=== PATIENT | male | born 1960 | race Caucasian/White ===

== ENCOUNTER 2017-03-29 10:35 | Day surgery (SDC) | payer OTHER ==
[2017-03-29 12:00] LABS: WHITE BLOOD COUNT 2.9 10^3/ul (4.8-10.8)
[2017-03-29 12:00] LABS: ABNORMAL IP MESSAGE 1; HEMATOCRIT 34.8 % (42.0-52.0); HEMOGLOBIN 11.6 g/dl (14.0-18.0); MEAN CORPUSCULAR HEMOGLOBIN 30.3 pg (29.0-33.0); MEAN CORPUSCULAR HGB CONC 33.3 g/dl (32.0-37.0); MEAN CORPUSCULAR VOLUME 90.9 fl (82.0-101.0); MEAN PLATELET VOLUME 11.2 fl (7.4-10.4); PLATELET COUNT 42 10^3/UL (140-415); POSITIVE DIFF @See below; RED BLOOD COUNT 3.83 10^6/ul (4.70-6.10); RED CELL DISTRIBUTION WIDTH 13.7 % (11.5-14.5)
[2017-03-29 12:11] LABS: ANION GAP 16 (8-16); CARBON DIOXIDE 20 mmol/L (21-31); CHLORIDE 112 mmol/L (97-110); GLUCOSE 111 mg/dl (70-220)
[2017-03-29 12:12] LABS: ADD MAN DIFF? YES; HOLD TRANSMISSIONS 1
[2017-03-29] MEDS ORDERED: MIDAZOLAM 1 MG/ML 2 ML INJ (12:12)
[2017-03-29] MEDS ORDERED: FENTAnyl 50 MCG/ML VIAL (12:12)
[2017-03-29] MEDS ORDERED: IODIXANOL LOCM 100 ML BTL (12:12)
[2017-03-29] MEDS ORDERED: LIDOCAINE 1% (MDV) 20 ML INJ (12:12)
[2017-03-29 12:27] LABS: INR 1.27; PROTIME 16.1 Sec (11.9-14.9); PT RATIO 1.3
[2017-03-29 12:30] LABS: BLOOD UREA NITROGEN 49 mg/dl (7-20); CALCIUM 9.2 mg/dl (8.4-10.2); CREATININE 1.53 mg/dl (0.61-1.24); POTASSIUM 4.8 mmol/L (3.5-5.1); SODIUM 143 mmol/L (135-144)
[2017-03-29 12:31] LABS: ANISOCYTOSIS 1+ (0-0); BAND NEUTROPHILS #M 0.1 10^3/ul (0.0-0.6); BAND NEUTROPHILS % (M) 4 % (0-4); EOSINOPHILS % (M) 2 % (0-7); LYMPHOCYTES #M 1.1 10^3/ul (0.8-2.9); LYMPHOCYTES % (M) 38 % (15-51); MONOCYTE #M 0.1 10^3/ul (0.3-0.9); MONOCYTES % (M) 5 % (0-11); OVALOCYTES 1+ (0-0); PLATELET ESTIMATE DECREASED; POIKILOCYTOSIS 1+ (0-0); SEG NEUT #M 1.5 10^3/ul (1.7-7.5); SEGMENTED NEUTROPHILS (M) % 51 % (39-77); SMUDGE%M 2 % (0-0)
[2017-03-29 12:38] LABS: PARTIAL THROMBOPLASTIN TIME 38.6 Sec (25.0-35.0)
== END 2017-03-29 13:56 | disposition home or self-care (01) ==
LOC: SDS 10:35
DX: L97.829 Non-pressure chronic ulcer of other part of left lower leg with unspecified severity (principal); Z53.9 Procedure and treatment not carried out, unspecified reason
CPT/HCPCS: 80048; 82962; 85025; 85610; 85730

== ENCOUNTER 2017-06-20 09:12 | Observation (INO) | payer OTHER ==
[2017-06-20 10:55] LABS: ABNORMAL IP MESSAGE 1; ADD MAN DIFF? NO; BASOPHILS % 0.3 % (0.0-2.0); EOSINOPHILS # 0.3 10^3/ul (0.0-0.5); EOSINOPHILS % 8.3 % (0.0-7.0); HEMATOCRIT 31.7 % (42.0-52.0); HEMOGLOBIN 10.7 g/dl (14.0-18.0); LYMPHOCYTES # 0.8 10^3/ul (0.8-2.9); LYMPHOCYTES % 25.6 % (15.0-51.0); MEAN CORPUSCULAR HEMOGLOBIN 29.8 pg (29.0-33.0); MEAN CORPUSCULAR HGB CONC 33.8 g/dl (32.0-37.0); MEAN CORPUSCULAR VOLUME 88.3 fl (82.0-101.0); MEAN PLATELET VOLUME 10.1 fl (7.4-10.4); MONOCYTE # 0.2 10^3/ul (0.3-0.9); MONOCYTES % 7.3 % (0.0-11.0); NEUTROPHIL # 1.8 10^3/ul (1.6-7.5); NEUTROPHILS % 58.2 % (39.0-77.0); PLATELET COUNT 49 10^3/UL (140-415); POSITIVE DIFF @See below; RED BLOOD COUNT 3.59 10^6/ul (4.70-6.10); RED CELL DISTRIBUTION WIDTH 13.9 % (11.5-14.5)
[2017-06-20 11:15] LABS: PROTIME 15.4 Sec (11.9-14.9); PT RATIO 1.2
[2017-06-20 11:16] LABS: PARTIAL THROMBOPLASTIN TIME 35.1 Sec (25.0-35.0)
[2017-06-20 11:20] LABS: ALANINE AMINOTRANSFERASE 30 IU/L (13-69); ALBUMIN/GLOBULIN RATIO 1.02; ALKALINE PHOSPHATASE 69 IU/L (42-121); ANION GAP 20 (8-16); ASPARTATE AMINO TRANSFERASE 26 IU/L (15-46); BILIRUBIN,INDIRECT 0.7 mg/dl (0-1.1); BILIRUBIN,TOTAL 0.7 mg/dl (0.2-1.3); BLOOD UREA NITROGEN 50 mg/dl (7-20); CALCIUM 9.2 mg/dl (8.4-10.2); CARBON DIOXIDE 21 mmol/L (21-31); CHLORIDE 111 mmol/L (97-110); CREATININE 1.84 mg/dl (0.61-1.24); GLUCOSE 158 mg/dl (70-220); LIPASE 199 U/L (23-300); POTASSIUM 4.8 mmol/L (3.5-5.1); SODIUM 147 mmol/L (135-144); TOTAL PROTEIN 7.9 g/dl (6.1-8.1)
[2017-06-20 11:25] LABS: ADD UMIC YES; UR ASCORBIC ACID NEGATIVE (NEGATIVE); UR BILIRUBIN (Dip) NEGATIVE (NEGATIVE); UR BLOOD (Dip) 2+ mg/dL (NEGATIVE); UR CLARITY CLEAR (CLEAR); UR COLOR YELLOW (YELLOW); UR GLUCOSE (Dip) NEGATIVE (NEGATIVE); UR KETONES (Dip) NEGATIVE (NEGATIVE); UR LEUKOCYTE ESTERASE (Dip) NEGATIVE Leu/ul (NEGATIVE); UR NITRITE (Dip) NEGATIVE (NEGATIVE); UR RBC 35 /HPF (0-5); UR TOTAL PROTEIN (Dip) 2+ mg/dl (NEGATIVE); UR UROBILINOGEN (Dip) NEGATIVE (NEGATIVE); UR WBC 2 /HPF (0-5)
[2017-06-20] MEDS ORDERED: ONDANSETRON 4 MG INJ IV (13:00)
[2017-06-20] MEDS ORDERED: ACETAMINOPHEN 325 MG TAB PO (13:00)
[2017-06-20] MEDS ORDERED: NACL 0.9% 3 ML SYG IV (16:00)
[2017-06-20] MEDS ORDERED: GLUCAGON 1 MG INJ IM (16:30)
[2017-06-20] MEDS ORDERED: DEXTROSE 50% 50 ML SYRINGE IV ×2 (16:30)
[2017-06-20] MEDS ORDERED: GLUCOSE GEL 15 GRAM TUBE BUCCAL (16:30)
[2017-06-20] MEDS ORDERED: GLUCOSE GEL 15 GRAM TUBE PO ×2 (16:30)
[2017-06-20] MEDS: SOD CHLORIDE 0.9% 1,000 ML IV (16:50)
[2017-06-20] MEDS: INSULIN ASPART [NOVOLOG] 3 ML PEN SC ×2 (17:49→20:53)
[2017-06-20] MEDS: INSULIN GLARGINE [LANtus] 3 ML PEN SC (20:53)
[2017-06-20 21:29] LABS: TYPE AND SCREEN 1 1
[2017-06-21] MEDS: ACCU-CHEK XX (02:00)
[2017-06-21 05:16] LABS: ADD MAN DIFF? NO; HAAIG REFLEX REFLEX FILED
[2017-06-21] MEDS: SOD CHLORIDE 0.9% 1,000 ML IV (05:18)
[2017-06-21 05:22] LABS: ABNORMAL IP MESSAGE 1; BASOPHILS % 0.4 % (0.0-2.0); EOSINOPHILS # 0.2 10^3/ul (0.0-0.5); EOSINOPHILS % 8.7 % (0.0-7.0); HEMATOCRIT 27.7 % (42.0-52.0); HEMOGLOBIN 9.4 g/dl (14.0-18.0); LYMPHOCYTES # 0.7 10^3/ul (0.8-2.9); LYMPHOCYTES % 27.7 % (15.0-51.0); MEAN CORPUSCULAR HEMOGLOBIN 30.1 pg (29.0-33.0); MEAN CORPUSCULAR HGB CONC 33.9 g/dl (32.0-37.0); MEAN CORPUSCULAR VOLUME 88.8 fl (82.0-101.0); MEAN PLATELET VOLUME 10.6 fl (7.4-10.4); MONOCYTE # 0.2 10^3/ul (0.3-0.9); NEUTROPHIL # 1.5 10^3/ul (1.6-7.5); NEUTROPHILS % 54.8 % (39.0-77.0); POSITIVE DIFF @See below; RED BLOOD COUNT 3.12 10^6/ul (4.70-6.10); RED CELL DISTRIBUTION WIDTH 14.2 % (11.5-14.5)
[2017-06-21 05:34] LABS: HEMOGLOBIN A1C 7.3 % (0-5.9)
[2017-06-21 05:49] LABS: ALANINE AMINOTRANSFERASE 26 IU/L (13-69); ALBUMIN 3.6 g/dl (3.3-4.9); ALBUMIN/GLOBULIN RATIO 1.09; ALKALINE PHOSPHATASE 62 IU/L (42-121); ANION GAP 17 (8-16); ASPARTATE AMINO TRANSFERASE 23 IU/L (15-46); BILIRUBIN,INDIRECT 0.6 mg/dl (0-1.1); BILIRUBIN,TOTAL 0.6 mg/dl (0.2-1.3); BLOOD UREA NITROGEN 46 mg/dl (7-20); CALCIUM 8.8 mg/dl (8.4-10.2); CARBON DIOXIDE 21 mmol/L (21-31); CHLORIDE 115 mmol/L (97-110); CREATININE 1.43 mg/dl (0.61-1.24); GLUCOSE 142 mg/dl (70-220); POTASSIUM 4.5 mmol/L (3.5-5.1); SODIUM 148 mmol/L (135-144); TOTAL PROTEIN 6.9 g/dl (6.1-8.1)
[2017-06-21 06:02] LABS: WHITE BLOOD COUNT 2.6 10^3/ul (4.8-10.8)
[2017-06-21 06:03] LABS: PLATELET COUNT 50 10^3/UL (140-415)
[2017-06-21 06:06] LABS: HEPATITIS B SURFACE ANTIGEN NEGATIVE (NEGATIVE)
[2017-06-21 06:24] LABS: HEPATITIS B CORE ANTIBODY NEGATIVE (NEGATIVE); HEPATITIS C VIRAL ANTIBODY NEGATIVE (NEGATIVE)
[2017-06-21] MEDS: INSULIN ASPART [NOVOLOG] 3 ML PEN SC ×2 (07:50→11:40)
== END 2017-06-21 16:10 | disposition home or self-care (01) ==
LOC: FTE 09:12 → MS1 12:53
DX: K74.60 Unspecified cirrhosis of liver (principal); D69.6 Thrombocytopenia, unspecified; E11.51 Type 2 diabetes mellitus with diabetic peripheral angiopathy without gangrene; Z79.4 Long term (current) use of insulin
CPT/HCPCS: 36415; 36430; 76700; 80053; 81001; 82962; 83036; 83690; 85025; 85610; 85730; 86644; 86704; 86709; 86803; 86850; 86900; 86901; 86945; 87340; 96360; 96361; 96372; 99285-25

== ENCOUNTER 2017-07-20 08:41 | Day surgery (SDC) | payer OTHER ==
[2017-07-20 10:06] LABS: ADD MAN DIFF? NO
[2017-07-20 10:11] LABS: ABNORMAL IP MESSAGE 1; BASOPHILS % 0.3 % (0.0-2.0); EOSINOPHILS # 0.1 10^3/ul (0.0-0.5); HEMATOCRIT 31.1 % (42.0-52.0); HEMOGLOBIN 10.3 g/dl (14.0-18.0); LYMPHOCYTES # 0.7 10^3/ul (0.8-2.9); LYMPHOCYTES % 24.3 % (15.0-51.0); MEAN CORPUSCULAR HEMOGLOBIN 29.5 pg (29.0-33.0); MEAN CORPUSCULAR HGB CONC 33.1 g/dl (32.0-37.0); MEAN CORPUSCULAR VOLUME 89.1 fl (82.0-101.0); MEAN PLATELET VOLUME 11.2 fl (7.4-10.4); MONOCYTE # 0.3 10^3/ul (0.3-0.9); MONOCYTES % 8.6 % (0.0-11.0); NEUTROPHIL # 1.9 10^3/ul (1.6-7.5); NEUTROPHILS % 62.5 % (39.0-77.0); POSITIVE DIFF @See below; RED BLOOD COUNT 3.49 10^6/ul (4.70-6.10)
[2017-07-20 10:12] LABS: HOLD TRANSMISSIONS 1
[2017-07-20 10:15] LABS: PLATELET COUNT 53 10^3/UL (140-415)
[2017-07-20 10:31] LABS: INR 1.19; PROTIME 15.3 Sec (11.9-14.9); PT RATIO 1.2
[2017-07-20 10:32] LABS: PARTIAL THROMBOPLASTIN TIME 33.7 Sec (25.0-35.0)
[2017-07-20 10:34] LABS: ANION GAP 16 (8-16); CARBON DIOXIDE 21 mmol/L (21-31); CHLORIDE 113 mmol/L (97-110); GLUCOSE 236 mg/dl (70-220)
[2017-07-20 10:38] LABS: BLOOD UREA NITROGEN 39 mg/dl (7-20); CREATININE 1.44 mg/dl (0.61-1.24); POTASSIUM 5.3 mmol/L (3.5-5.1); SODIUM 145 mmol/L (135-144)
[2017-07-20 10:41] LABS: CALCIUM 9.1 mg/dl (8.4-10.2)
[2017-07-20 11:09] LABS: ADD UMIC YES; UR ASCORBIC ACID NEGATIVE (NEGATIVE); UR BACTERIA FEW /HPF (NONE SEEN); UR BILIRUBIN (Dip) NEGATIVE (NEGATIVE); UR BLOOD (Dip) 2+ mg/dL (NEGATIVE); UR CLARITY SLIGHTLY CLOUDY (CLEAR); UR COLOR YELLOW (YELLOW); UR GLUCOSE (Dip) 2+ mg/dL (NEGATIVE); UR KETONES (Dip) NEGATIVE (NEGATIVE); UR LEUKOCYTE ESTERASE (Dip) TRACE Leu/ul (NEGATIVE); UR NITRITE (Dip) NEGATIVE (NEGATIVE); UR RBC 119 /HPF (0-5); UR SPECIFIC GRAVITY (Dip) 1.015 (1.003-1.030); UR TOTAL PROTEIN (Dip) 3+ mg/dl (NEGATIVE); UR UROBILINOGEN (Dip) NEGATIVE (NEGATIVE); UR WBC 8 /HPF (0-5)
== END 2017-07-20 15:55 | disposition home or self-care (01) ==
LOC: SDS 08:41
DX: L97.529 Non-pressure chronic ulcer of other part of left foot with unspecified severity (principal); E11.9 Type 2 diabetes mellitus without complications; I10 Essential (primary) hypertension; I73.9 Peripheral vascular disease, unspecified
CPT/HCPCS: 36200; 37229; 75710; 76937; 80048; 81001; 82962; 85025; 85610; 85730

== ENCOUNTER 2017-10-11 15:13 | Inpatient (IN) | payer OTHER ==
[2017-10-11] MEDS: ACETAMINOPHEN 325 MG TAB PO (19:12)
[2017-10-11 19:39] LABS: ABNORMAL IP MESSAGE 1; HEMATOCRIT 34.4 % (42.0-52.0); HEMOGLOBIN 11.4 g/dl (14.0-18.0); MEAN CORPUSCULAR HEMOGLOBIN 29.2 pg (29.0-33.0); MEAN CORPUSCULAR HGB CONC 33.1 g/dl (32.0-37.0); MEAN PLATELET VOLUME 11.5 fl (7.4-10.4); PLATELET COUNT 46 10^3/UL (140-415); POSITIVE DIFF @See below; RED BLOOD COUNT 3.91 10^6/ul (4.70-6.10); RED CELL DISTRIBUTION WIDTH 14.5 % (11.5-14.5)
[2017-10-11 19:39] LABS: WHITE BLOOD COUNT 7.2 10^3/ul (4.8-10.8)
[2017-10-11 19:43] LABS: ADD MAN DIFF? YES
[2017-10-11 19:44] LABS: PATH REVIEW? YES
[2017-10-11] MEDS: PIPER-TAZO 3.375 GM IV (PMX) 100 ML IVPB (19:44)
[2017-10-11] MEDS: VANCOMYCIN 1 GM (PMX) 250 ML IVPB (19:44)
[2017-10-11] MEDS: SODIUM CHLORIDE 0.9% 1L BAG IV* (19:45)
[2017-10-11 19:58] LABS: ALANINE AMINOTRANSFERASE 22 IU/L (13-69); ALBUMIN/GLOBULIN RATIO 1.02; ALKALINE PHOSPHATASE 83 IU/L (42-121); AMYLASE 55 U/L (11-123); ANION GAP 15 (8-16); ASPARTATE AMINO TRANSFERASE 28 IU/L (15-46); BILIRUBIN,INDIRECT 1.8 mg/dl (0-1.1); BILIRUBIN,TOTAL 1.8 mg/dl (0.2-1.3); BLOOD UREA NITROGEN 67 mg/dl (7-20); CALCIUM 8.7 mg/dl (8.4-10.2); CARBON DIOXIDE 20 mmol/L (21-31); CHLORIDE 102 mmol/L (97-110); CREATININE 2.85 mg/dl (0.61-1.24); GLUCOSE 358 mg/dl (70-220); INR 1.38; LIPASE 97 U/L (23-300); POTASSIUM 5.2 mmol/L (3.5-5.1); PROTIME 17.2 Sec (11.9-14.9); PT RATIO 1.3; SODIUM 132 mmol/L (135-144); TOTAL PROTEIN 7.9 g/dl (6.1-8.1)
[2017-10-11 19:59] LABS: PARTIAL THROMBOPLASTIN TIME 39.1 Sec (25.0-35.0)
[2017-10-11 19:59] LABS: LACTIC ACID 1.4 mmol/L (0.5-2.0)
[2017-10-11 20:10] LABS: TROPONIN-I 0.011 ng/ml (0.000-0.120)
[2017-10-11] MEDS: CLINDAMYCIN 900 MG/D5W (PMX) 50 ML IVPB (20:39)
[2017-10-11 20:44] LABS: ANISOCYTOSIS 1+ (0-0); BAND NEUTROPHILS #M 0.5 10^3/ul (0.0-0.6); BAND NEUTROPHILS % (M) 7 % (0-4); LYMPHOCYTES % (M) 14 % (15-51); METAMYELOCYTES %M 1 % (0-0); MICROCYTOSIS 1+ (0-0); MONOCYTE #M 0.3 10^3/ul (0.3-0.9); MONOCYTES % (M) 5 % (0-11); PLATELET ESTIMATE DECREASED; POIKILOCYTOSIS 1+ (0-0); SEG NEUT #M 5.3 10^3/ul (1.6-7.5); SEGMENTED NEUTROPHILS (M) % 73 % (39-77); SMUDGE%M 5 % (0-0)
[2017-10-11] MEDS ORDERED: ACETAMINOPHEN 325 MG TAB PO (21:00)
[2017-10-11] MEDS: VANCOMYCIN 1 GM 250 ML IVPB (21:00)
[2017-10-11] MEDS ORDERED: ONDANSETRON 4 MG INJ IV (21:00)
[2017-10-11] MEDS ORDERED: DOCUSATE SODIUM 100 MG CAP PO (22:30)
[2017-10-11] MEDS ORDERED: NACL 0.9% 3 ML SYG IV ×2 (22:30)
[2017-10-11] MEDS ORDERED: BISACODYL (EC) 5 MG TAB PO (22:30)
[2017-10-11] MEDS ORDERED: VANCOMYCIN IV PER PHARMACY XX (22:30)
[2017-10-11] MEDS ORDERED: GLUCOSE GEL 15 GRAM TUBE BUCCAL (23:00)
[2017-10-11] MEDS ORDERED: GLUCAGON 1 MG INJ IM (23:00)
[2017-10-11] MEDS ORDERED: GLUCOSE GEL 15 GRAM TUBE PO ×2 (23:00)
[2017-10-11] MEDS ORDERED: DEXTROSE 50% 50 ML SYRINGE IV ×2 (23:00)
[2017-10-11] MEDS: morphine 2 MG INJ IV (23:06)
[2017-10-11 23:51] LABS: LACTIC ACID 0.8 mmol/L (0.5-2.0)
[2017-10-12 00:29] LABS: ANION GAP 10 (8-16); BLOOD UREA NITROGEN 62 mg/dl (7-20); CALCIUM 7.2 mg/dl (8.4-10.2); CARBON DIOXIDE 18 mmol/L (21-31); CHLORIDE 110 mmol/L (97-110); CREATININE 2.38 mg/dl (0.61-1.24); GLUCOSE 273 mg/dl (70-220); POTASSIUM 4.8 mmol/L (3.5-5.1); SODIUM 133 mmol/L (135-144)
[2017-10-12] MEDS: VANCOMYCIN 750 MG in SOD CHLORIDE 0.9% 150 ML IVPB (00:47)
[2017-10-12] MEDS: NPH, HUMAN INSULIN ISOPHANE 3ML VIAL SC ×2 (00:56→09:12)
[2017-10-12] MEDS: ACCU-CHEK XX (02:00)
[2017-10-12] MEDS: PIPER-TAZO 2.25 GM (PMX) 50 ML IVPB ×4 (03:58→21:34)
[2017-10-12] MEDS ORDERED: PENDING SANTYL ORDER FOR WOUND CARE XX (06:30)
[2017-10-12 07:19] LABS: ADD MAN DIFF? NO
[2017-10-12 07:28] LABS: WHITE BLOOD COUNT 4.7 10^3/ul (4.8-10.8)
[2017-10-12 07:28] LABS: ABNORMAL IP MESSAGE 1; BASOPHILS % 0.2 % (0.0-2.0); EOSINOPHILS # 0.1 10^3/ul (0.0-0.5); EOSINOPHILS % 1.9 % (0.0-7.0); HEMATOCRIT 28.1 % (42.0-52.0); HEMOGLOBIN 9.3 g/dl (14.0-18.0); LYMPHOCYTES # 0.9 10^3/ul (0.8-2.9); LYMPHOCYTES % 19.3 % (15.0-51.0); MEAN CORPUSCULAR HEMOGLOBIN 29.5 pg (29.0-33.0); MEAN CORPUSCULAR HGB CONC 33.1 g/dl (32.0-37.0); MEAN CORPUSCULAR VOLUME 89.2 fl (82.0-101.0); MEAN PLATELET VOLUME 11.5 fl (7.4-10.4); MONOCYTE # 0.3 10^3/ul (0.3-0.9); MONOCYTES % 7.3 % (0.0-11.0); NEUTROPHIL # 3.3 10^3/ul (1.6-7.5); NEUTROPHILS % 71.1 % (39.0-77.0); PLATELET COUNT 37 10^3/UL (140-415); POSITIVE DIFF @See below; RED BLOOD COUNT 3.15 10^6/ul (4.70-6.10); RED CELL DISTRIBUTION WIDTH 14.5 % (11.5-14.5)
[2017-10-12] MEDS: INSULIN ASPART [NOVOLOG] 3 ML PEN SC ×6 (07:38→21:44)
[2017-10-12 07:50] LABS: ALANINE AMINOTRANSFERASE 31 IU/L (13-69); ALBUMIN 2.6 g/dl (3.3-4.9); ALBUMIN/GLOBULIN RATIO 0.81; ALKALINE PHOSPHATASE 53 IU/L (42-121); ANION GAP 12 (8-16); ASPARTATE AMINO TRANSFERASE 25 IU/L (15-46); BILIRUBIN,INDIRECT 1.1 mg/dl (0-1.1); BILIRUBIN,TOTAL 1.1 mg/dl (0.2-1.3); BLOOD UREA NITROGEN 60 mg/dl (7-20); CALCIUM 7.3 mg/dl (8.4-10.2); CARBON DIOXIDE 16 mmol/L (21-31); CHLORIDE 110 mmol/L (97-110); CHOL/HDL RATIO 2.4 RATIO; CHOLESTEROL 60 mg/dl (100-200); CREATININE 2.27 mg/dl (0.61-1.24); GLUCOSE 280 mg/dl (70-220); HDL CHOLESTEROL 25 mg/dl (28-71); LDL CHOLESTEROL,CALCULATED 17 mg/dl; MAGNESIUM 1.9 mg/dl (1.7-2.5); POTASSIUM 4.9 mmol/L (3.5-5.1); SODIUM 133 mmol/L (135-144); TOTAL PROTEIN 5.8 g/dl (6.1-8.1); TRIGLYCERIDES 92 mg/dl (0-149)
[2017-10-12] MEDS: SOD CHLORIDE 0.9% 500 ML IV (09:14)
[2017-10-12 14:14] LABS: ADD UMIC YES; UR ASCORBIC ACID NEGATIVE (NEGATIVE); UR BILIRUBIN (Dip) NEGATIVE (NEGATIVE); UR BLOOD (Dip) 3+ mg/dL (NEGATIVE); UR CLARITY CLEAR (CLEAR); UR COLOR YELLOW (YELLOW); UR GLUCOSE (Dip) 3+ mg/dL (NEGATIVE); UR KETONES (Dip) NEGATIVE (NEGATIVE); UR LEUKOCYTE ESTERASE (Dip) NEGATIVE Leu/ul (NEGATIVE); UR NITRITE (Dip) NEGATIVE (NEGATIVE); UR RBC 95 /HPF (0-5); UR SPECIFIC GRAVITY (Dip) 1.011 (1.003-1.030); UR SQUAMOUS EPITHELIAL CELL FEW /HPF (FEW); UR TOTAL PROTEIN (Dip) 2+ mg/dl (NEGATIVE); UR UROBILINOGEN (Dip) NEGATIVE (NEGATIVE); UR WBC 3 /HPF (0-5)
[2017-10-12 14:24] LABS: SODIUM,URINE RANDOM 73 mmol/L (30-90)
[2017-10-12 14:43] LABS: CREATININE,URINE RANDOM 67.64 mg/dl (20-370)
[2017-10-12] MEDS: VANCOMYCIN 1 GM 250 ML IVPB (21:34)
[2017-10-12] MEDS: morphine 2 MG INJ IV (21:35)
[2017-10-12] MEDS: INSULIN GLARGINE [LANTus] (100 UNITS/ML) SYG SC (21:43)
[2017-10-13] MEDS ORDERED: ACCU-CHEK XX (02:00)
[2017-10-13] MEDS: ACCU-CHEK XX (02:12)
[2017-10-13 04:46] LABS: ADD UMIC YES; UR CLARITY SL (CLEAR); UR COLOR YELLOW (YELLOW)
[2017-10-13 04:47] LABS: UR BILIRUBIN (Dip) NEGATIVE (NEGATIVE); UR BLOOD (Dip) 2+ mg/dL (NEGATIVE); UR GLUCOSE (Dip) NEGATIVE (NEGATIVE); UR KETONES (Dip) NEGATIVE (NEGATIVE); UR NITRITE (Dip) NEGATIVE (NEGATIVE); UR TOTAL PROTEIN (Dip) 2+ mg/dl (NEGATIVE); UR UROBILINOGEN (Dip) 0.2 E.U./dL mg/dL (NEGATIVE)
[2017-10-13 04:48] LABS: UR SQUAMOUS EPITHELIAL CELL FEW /HPF (FEW)
[2017-10-13 04:49] LABS: UR URIC ACID CRYSTAL FEW /HPF (NONE SEEN)
[2017-10-13 04:50] LABS: UR LEUKOCYTE ESTERASE (Dip) NEGATIVE Leu/ul (NEGATIVE)
[2017-10-13] MEDS: PIPER-TAZO 2.25 GM (PMX) 50 ML IVPB (05:15)
[2017-10-13 07:01] LABS: BLOOD UREA NITROGEN 53 mg/dl (7-20); CALCIUM 7.7 mg/dl (8.4-10.2); CARBON DIOXIDE 17 mmol/L (21-31); CHLORIDE 112 mmol/L (97-110); CREATININE 2.04 mg/dl (0.61-1.24); GLUCOSE 151 mg/dl (70-220); SODIUM 139 mmol/L (135-144)
[2017-10-13 07:39] LABS: ANION GAP 15 (8-16); POTASSIUM 4.6 mmol/L (3.5-5.1)
[2017-10-13] MEDS: INSULIN ASPART [NOVOLOG] 3 ML PEN SC ×7 (08:17→20:50)
[2017-10-13] MEDS: CEFTRIAXONE 1 GM/50 ML (PMX) 50 ML IVPB (12:30)
[2017-10-13] MEDS: morphine LIQ (10 MG/5 ML) CUP PO (14:05)
[2017-10-13 18:22] LABS: CREATININE, RANDOM URINE 84 mg/dL (20-370); MICROALBUMIN 33.8 mg/dL; MICROALBUMIN/CREATININE RATIO 402 (<30)
[2017-10-13] MEDS: INSULIN GLARGINE [LANTus] (100 UNITS/ML) SYG SC (21:52)
[2017-10-14] MEDS: ACCU-CHEK XX (02:00)
[2017-10-14 07:20] LABS: IRON 33 ug/dl (35-150)
[2017-10-14 07:29] LABS: % IRON SATURATION 13 % SAT (22-52); TOTAL IRON BINDING CAPACITY 251 ug/dl (241-421)
[2017-10-14 07:35] LABS: ANION GAP 15 (8-16); BLOOD UREA NITROGEN 45 mg/dl (7-20); CALCIUM 8.1 mg/dl (8.4-10.2); CARBON DIOXIDE 17 mmol/L (21-31); CHLORIDE 112 mmol/L (97-110); CREATININE 1.63 mg/dl (0.61-1.24); GLUCOSE 148 mg/dl (70-220); MAGNESIUM 2.2 mg/dl (1.7-2.5); PHOSPHORUS 4.4 mg/dl (2.5-4.9); POTASSIUM 4.8 mmol/L (3.5-5.1); SODIUM 139 mmol/L (135-144)
[2017-10-14] MEDS: INSULIN ASPART [NOVOLOG] 3 ML PEN SC ×7 (08:08→20:31)
[2017-10-14] MEDS: morphine LIQ (10 MG/5 ML) CUP PO ×3 (09:25→20:32)
[2017-10-14] MEDS: CITRIC ACID/SODIUM CITRATE 15 ML CUP PO ×2 (09:27→20:32)
[2017-10-14] MEDS: CEFTRIAXONE 1 GM/50 ML (PMX) 50 ML IVPB (11:50)
[2017-10-14] MEDS: LACTATED RINGER'S 500 ML IV (13:28)
[2017-10-14] MEDS ORDERED: SOD FERRIC GLUC COMPLX 125 MG in SOD CHLORIDE 0.9% 100 ML IVPB (17:00)
[2017-10-14] MEDS: SOD FERRIC GLUC COMPLX 125 MG in SOD CHLORIDE 0.9% 100 ML IVPB (17:40)
[2017-10-14] MEDS: INSULIN GLARGINE [LANTus] (100 UNITS/ML) SYG SC (20:54)
[2017-10-15] MEDS: ACCU-CHEK XX (02:00)
[2017-10-15 07:16] LABS: WHITE BLOOD COUNT 3.2 10^3/ul (4.8-10.8)
[2017-10-15 07:16] LABS: ABNORMAL IP MESSAGE 1; ADD MAN DIFF? NO; BASOPHILS % 0.3 % (0.0-2.0); EOSINOPHILS # 0.2 10^3/ul (0.0-0.5); EOSINOPHILS % 5.1 % (0.0-7.0); HEMATOCRIT 27.1 % (42.0-52.0); HEMOGLOBIN 8.7 g/dl (14.0-18.0); LYMPHOCYTES % 30.8 % (15.0-51.0); MEAN CORPUSCULAR HEMOGLOBIN 28.9 pg (29.0-33.0); MEAN CORPUSCULAR HGB CONC 32.1 g/dl (32.0-37.0); MONOCYTE # 0.3 10^3/ul (0.3-0.9); MONOCYTES % 9.8 % (0.0-11.0); NEUTROPHIL # 1.7 10^3/ul (1.6-7.5); NEUTROPHILS % 52.7 % (39.0-77.0); PLATELET COUNT 55 10^3/UL (140-415); POSITIVE DIFF @See below; RED BLOOD COUNT 3.01 10^6/ul (4.70-6.10); RED CELL DISTRIBUTION WIDTH 14.3 % (11.5-14.5)
[2017-10-15 07:48] LABS: ANION GAP 12 (8-16); BLOOD UREA NITROGEN 38 mg/dl (7-20); CALCIUM 8.2 mg/dl (8.4-10.2); CARBON DIOXIDE 20 mmol/L (21-31); CHLORIDE 112 mmol/L (97-110); CREATININE 1.44 mg/dl (0.61-1.24); GLUCOSE 161 mg/dl (70-220); MAGNESIUM 2.1 mg/dl (1.7-2.5); PHOSPHORUS 4.6 mg/dl (2.5-4.9); POTASSIUM 4.8 mmol/L (3.5-5.1); SODIUM 139 mmol/L (135-144)
[2017-10-15] MEDS: CITRIC ACID/SODIUM CITRATE 15 ML CUP PO ×2 (07:51→20:06)
[2017-10-15] MEDS: INSULIN ASPART [NOVOLOG] 3 ML PEN SC ×7 (07:58→20:25)
[2017-10-15] MEDS: THIAMINE 100 MG TAB PO (08:16)
[2017-10-15] MEDS: LACTATED RINGER'S 500 ML IV (11:33)
[2017-10-15] MEDS: CEFTRIAXONE 1 GM/50 ML (PMX) 50 ML IVPB (11:34)
[2017-10-15] MEDS: morphine LIQ (10 MG/5 ML) CUP PO ×2 (11:40→19:49)
[2017-10-15] MEDS: SOD FERRIC GLUC COMPLX 125 MG in SOD CHLORIDE 0.9% 100 ML IVPB (17:04)
[2017-10-15] MEDS: ACETYLCYSTEINE 600 MG CAP PO (20:07)
[2017-10-15] MEDS: TERBINAFINE 250 MG TAB PO (20:07)
[2017-10-15] MEDS: INSULIN GLARGINE [LANTus] (100 UNITS/ML) SYG SC (20:23)
[2017-10-16] MEDS: morphine LIQ (10 MG/5 ML) CUP PO ×3 (01:11→20:34)
[2017-10-16] MEDS: ACCU-CHEK XX (02:00)
[2017-10-16 07:15] LABS: ANION GAP 10 (8-16); BLOOD UREA NITROGEN 35 mg/dl (7-20); CALCIUM 8.3 mg/dl (8.4-10.2); CARBON DIOXIDE 23 mmol/L (21-31); CHLORIDE 111 mmol/L (97-110); CREATININE 1.34 mg/dl (0.61-1.24); GLUCOSE 124 mg/dl (70-220); POTASSIUM 4.6 mmol/L (3.5-5.1); SODIUM 139 mmol/L (135-144)
[2017-10-16] MEDS: INSULIN ASPART [NOVOLOG] 3 ML PEN SC ×7 (07:55→20:36)
[2017-10-16] MEDS: TERBINAFINE 250 MG TAB PO ×2 (08:21→20:29)
[2017-10-16] MEDS: ACETYLCYSTEINE 600 MG CAP PO ×2 (08:21→20:29)
[2017-10-16] MEDS: CITRIC ACID/SODIUM CITRATE 15 ML CUP PO ×2 (08:21→20:29)
[2017-10-16] MEDS: THIAMINE 100 MG TAB PO (08:21)
[2017-10-16] MEDS: CEFTRIAXONE 1 GM/50 ML (PMX) 50 ML IVPB (12:33)
[2017-10-16] MEDS: SOD FERRIC GLUC COMPLX 125 MG in SOD CHLORIDE 0.9% 100 ML IVPB (16:57)
[2017-10-16 18:06] LABS: CREATININE, RANDOM URINE 82 mg/dL (20-370); MICROALBUMIN 57.6 mg/dL; MICROALBUMIN/CREATININE RATIO 702 (<30)
[2017-10-16] MEDS: INSULIN GLARGINE [LANTus] (100 UNITS/ML) SYG SC (20:34)
[2017-10-17] MEDS: ACCU-CHEK XX (02:00)
[2017-10-17] MEDS: INSULIN ASPART [NOVOLOG] 3 ML PEN SC ×7 (07:42→20:22)
[2017-10-17] MEDS: TERBINAFINE 250 MG TAB PO ×2 (08:13→20:22)
[2017-10-17] MEDS: CITRIC ACID/SODIUM CITRATE 15 ML CUP PO ×2 (08:13→20:22)
[2017-10-17] MEDS: THIAMINE 100 MG TAB PO (08:13)
[2017-10-17] MEDS: ACETYLCYSTEINE 600 MG CAP PO ×2 (08:13→20:22)
[2017-10-17] MEDS: CEFTRIAXONE 1 GM/50 ML (PMX) 50 ML IVPB (12:31)
[2017-10-17] MEDS: morphine LIQ (10 MG/5 ML) CUP PO (13:40)
[2017-10-17] MEDS: SOD FERRIC GLUC COMPLX 125 MG in SOD CHLORIDE 0.9% 100 ML IVPB (17:09)
[2017-10-17] MEDS: INSULIN GLARGINE [LANTus] (100 UNITS/ML) SYG SC (20:24)
[2017-10-17] MEDS: LOSARTAN 50 MG TAB PO (21:28)
[2017-10-18] MEDS: ACCU-CHEK XX (02:00)
[2017-10-18] MEDS ORDERED: HEPARIN 1000 UNITS/ML 10 ML INJ (07:28)
[2017-10-18] MEDS ORDERED: FENTAnyl 50 MCG/ML VIAL (07:28)
[2017-10-18] MEDS ORDERED: MIDAZOLAM 1 MG/ML 2 ML INJ (07:29)
[2017-10-18] MEDS: INSULIN ASPART [NOVOLOG] 3 ML PEN SC ×7 (07:55→20:17)
[2017-10-18] MEDS: CITRIC ACID/SODIUM CITRATE 15 ML CUP PO ×2 (11:06→20:14)
[2017-10-18] MEDS: TERBINAFINE 250 MG TAB PO ×2 (11:07→20:14)
[2017-10-18] MEDS: ACETYLCYSTEINE 600 MG CAP PO ×2 (11:07→20:14)
[2017-10-18] MEDS: LOSARTAN 50 MG TAB PO (11:07)
[2017-10-18] MEDS: THIAMINE 100 MG TAB PO (11:07)
[2017-10-18 11:25] LABS: ADD MAN DIFF? NO
[2017-10-18 11:39] LABS: ABNORMAL IP MESSAGE 1; BASOPHILS % 0.4 % (0.0-2.0); EOSINOPHILS # 0.1 10^3/ul (0.0-0.5); EOSINOPHILS % 3.5 % (0.0-7.0); HEMATOCRIT 29.7 % (42.0-52.0); HEMOGLOBIN 9.8 g/dl (14.0-18.0); LYMPHOCYTES # 0.8 10^3/ul (0.8-2.9); LYMPHOCYTES % 27.8 % (15.0-51.0); MEAN CORPUSCULAR HEMOGLOBIN 29.7 pg (29.0-33.0); MEAN PLATELET VOLUME 10.5 fl (7.4-10.4); MONOCYTE # 0.2 10^3/ul (0.3-0.9); MONOCYTES % 8.5 % (0.0-11.0); NEUTROPHIL # 1.7 10^3/ul (1.6-7.5); NEUTROPHILS % 59.4 % (39.0-77.0); PLATELET COUNT 64 10^3/UL (140-415); POSITIVE DIFF @See below
[2017-10-18 11:39] LABS: WHITE BLOOD COUNT 2.8 10^3/ul (4.8-10.8)
[2017-10-18 11:48] LABS: ANION GAP 13 (8-16); BLOOD UREA NITROGEN 29 mg/dl (7-20); CALCIUM 8.4 mg/dl (8.4-10.2); CARBON DIOXIDE 22 mmol/L (21-31); CHLORIDE 110 mmol/L (97-110); GLUCOSE 122 mg/dl (70-220); MAGNESIUM 1.8 mg/dl (1.7-2.5); PHOSPHORUS 3.8 mg/dl (2.5-4.9); POTASSIUM 4.4 mmol/L (3.5-5.1); SODIUM 141 mmol/L (135-144)
[2017-10-18] MEDS: CEFTRIAXONE 1 GM/50 ML (PMX) 50 ML IVPB (12:27)
[2017-10-18] MEDS: SOD FERRIC GLUC COMPLX 125 MG in SOD CHLORIDE 0.9% 100 ML IVPB (17:22)
[2017-10-18] MEDS: morphine LIQ (10 MG/5 ML) CUP PO (17:32)
[2017-10-18] MEDS: INSULIN GLARGINE [LANTus] (100 UNITS/ML) SYG SC (20:27)
[2017-10-19] MEDS: ACCU-CHEK XX (02:00)
[2017-10-19] MEDS: INSULIN ASPART [NOVOLOG] 3 ML PEN SC ×7 (07:55→20:53)
[2017-10-19] MEDS: THIAMINE 100 MG TAB PO (08:37)
[2017-10-19] MEDS: TERBINAFINE 250 MG TAB PO ×2 (08:37→20:48)
[2017-10-19] MEDS: LOSARTAN 50 MG TAB PO (08:37)
[2017-10-19 08:41] LABS: ADD MAN DIFF? NO
[2017-10-19] MEDS: ACETYLCYSTEINE 600 MG CAP PO (08:42)
[2017-10-19 08:48] LABS: WHITE BLOOD COUNT 2.9 10^3/ul (4.8-10.8)
[2017-10-19 08:48] LABS: ABNORMAL IP MESSAGE 1; BASOPHILS % 0.3 % (0.0-2.0); EOSINOPHILS # 0.1 10^3/ul (0.0-0.5); EOSINOPHILS % 3.4 % (0.0-7.0); HEMATOCRIT 29.8 % (42.0-52.0); HEMOGLOBIN 9.4 g/dl (14.0-18.0); LYMPHOCYTES # 0.8 10^3/ul (0.8-2.9); LYMPHOCYTES % 25.9 % (15.0-51.0); MEAN CORPUSCULAR HEMOGLOBIN 28.6 pg (29.0-33.0); MEAN CORPUSCULAR HGB CONC 31.5 g/dl (32.0-37.0); MEAN CORPUSCULAR VOLUME 90.6 fl (82.0-101.0); MEAN PLATELET VOLUME 10.7 fl (7.4-10.4); MONOCYTE # 0.2 10^3/ul (0.3-0.9); MONOCYTES % 6.5 % (0.0-11.0); NEUTROPHIL # 1.9 10^3/ul (1.6-7.5); NEUTROPHILS % 63.6 % (39.0-77.0); PLATELET COUNT 74 10^3/UL (140-415); POSITIVE DIFF @See below; RED BLOOD COUNT 3.29 10^6/ul (4.70-6.10); RED CELL DISTRIBUTION WIDTH 14.3 % (11.5-14.5)
[2017-10-19 09:34] LABS: ANION GAP 14 (8-16); BLOOD UREA NITROGEN 34 mg/dl (7-20); CALCIUM 8.3 mg/dl (8.4-10.2); CARBON DIOXIDE 22 mmol/L (21-31); CHLORIDE 108 mmol/L (97-110); CREATININE 1.33 mg/dl (0.61-1.24); GLUCOSE 114 mg/dl (70-220); MAGNESIUM 1.8 mg/dl (1.7-2.5); PHOSPHORUS 3.6 mg/dl (2.5-4.9); POTASSIUM 4.3 mmol/L (3.5-5.1); SODIUM 140 mmol/L (135-144)
[2017-10-19] MEDS: CEFTRIAXONE 1 GM/50 ML (PMX) 50 ML IVPB (12:02)
[2017-10-19] MEDS: morphine LIQ (10 MG/5 ML) CUP PO (20:49)
[2017-10-19] MEDS: INSULIN GLARGINE [LANTus] (100 UNITS/ML) SYG SC (20:57)
[2017-10-20] MEDS: ACCU-CHEK XX (02:00)
[2017-10-20] MEDS: INSULIN ASPART [NOVOLOG] 3 ML PEN SC ×7 (07:41→20:39)
[2017-10-20 08:07] LABS: ADD MAN DIFF? NO
[2017-10-20 08:18] LABS: ABNORMAL IP MESSAGE 1; BASOPHILS % 0.3 % (0.0-2.0); EOSINOPHILS # 0.1 10^3/ul (0.0-0.5); HEMATOCRIT 28.5 % (42.0-52.0); HEMOGLOBIN 9.3 g/dl (14.0-18.0); LYMPHOCYTES # 0.9 10^3/ul (0.8-2.9); LYMPHOCYTES % 28.2 % (15.0-51.0); MEAN CORPUSCULAR HEMOGLOBIN 29.8 pg (29.0-33.0); MEAN CORPUSCULAR HGB CONC 32.6 g/dl (32.0-37.0); MEAN CORPUSCULAR VOLUME 91.3 fl (82.0-101.0); MEAN PLATELET VOLUME 10.5 fl (7.4-10.4); MONOCYTE # 0.3 10^3/ul (0.3-0.9); MONOCYTES % 9.6 % (0.0-11.0); NEUTROPHIL # 1.9 10^3/ul (1.6-7.5); NEUTROPHILS % 57.6 % (39.0-77.0); PLATELET COUNT 66 10^3/UL (140-415); POSITIVE DIFF @See below; RED BLOOD COUNT 3.12 10^6/ul (4.70-6.10); RED CELL DISTRIBUTION WIDTH 14.5 % (11.5-14.5)
[2017-10-20 08:18] LABS: WHITE BLOOD COUNT 3.2 10^3/ul (4.8-10.8)
[2017-10-20 08:59] LABS: ANION GAP 10 (8-16); BLOOD UREA NITROGEN 34 mg/dl (7-20); CALCIUM 8.3 mg/dl (8.4-10.2); CARBON DIOXIDE 23 mmol/L (21-31); CHLORIDE 109 mmol/L (97-110); CREATININE 1.49 mg/dl (0.61-1.24); GLUCOSE 100 mg/dl (70-220); PHOSPHORUS 4.3 mg/dl (2.5-4.9); POTASSIUM 4.3 mmol/L (3.5-5.1); SODIUM 138 mmol/L (135-144)
[2017-10-20] MEDS: LOSARTAN 50 MG TAB PO (09:46)
[2017-10-20] MEDS: TERBINAFINE 250 MG TAB PO ×2 (09:46→20:39)
[2017-10-20] MEDS: CEFTRIAXONE 1 GM/50 ML (PMX) 50 ML IVPB (12:18)
[2017-10-20] MEDS: morphine LIQ (10 MG/5 ML) CUP PO ×2 (15:44→20:39)
[2017-10-20] MEDS: INSULIN GLARGINE [LANTus] (100 UNITS/ML) SYG SC (20:54)
[2017-10-21] MEDS: POLYMYXIN/BACITRACIN 1L IRRIG IRR
[2017-10-21] MEDS: BUPIVACAINE 0.5% 30 ML VIAL INJ
[2017-10-21] MEDS: BACITRACIN 50000 UNITS INJ IRR
[2017-10-21] MEDS: NEOMYC/POLYMYX/BACIT 30 GM OINT TOP
[2017-10-21] MEDS: ACCU-CHEK XX ×2 (02:00→21:56)
[2017-10-21] MEDS ORDERED: BUPIVACAINE 0.25% (MPF) 30 ML INJ (07:05)
[2017-10-21] MEDS ORDERED: BUPIVACAINE 0.5% (SDV) 30 ML INJ (07:05)
[2017-10-21 07:26] LABS: ANION GAP 9 (8-16); BLOOD UREA NITROGEN 36 mg/dl (7-20); CARBON DIOXIDE 24 mmol/L (21-31); CHLORIDE 110 mmol/L (97-110); CREATININE 1.57 mg/dl (0.61-1.24); GLUCOSE 151 mg/dl (70-220); PHOSPHORUS 4.1 mg/dl (2.5-4.9); POTASSIUM 4.6 mmol/L (3.5-5.1); SODIUM 138 mmol/L (135-144)
[2017-10-21] MEDS ORDERED: PROCHLORPERAZINE 10 MG INJ IV (07:30)
[2017-10-21] MEDS ORDERED: MEPERIDINE 25 MG INJ IV (07:30)
[2017-10-21] MEDS ORDERED: HYDROmorphONE 1 MG/5 ML IV SYRINGE IV (07:30)
[2017-10-21] MEDS ORDERED: DIPHENHYDRAMINE 50 MG INJ IV (07:30)
[2017-10-21] MEDS ORDERED: MIDAZOLAM 1 MG/ML 2 ML INJ (07:31)
[2017-10-21] MEDS ORDERED: LIDOCAINE 2% (SDV) 5 ML INJ (07:36)
[2017-10-21] MEDS ORDERED: PROPOFOL 20 ML (07:36)
[2017-10-21] MEDS ORDERED: FENTAnyl 50 MCG/ML VIAL (07:37)
[2017-10-21] MEDS ORDERED: ONDANSETRON 4 MG INJ (07:53)
[2017-10-21] MEDS ORDERED: FAMOTIDINE 20 MG INJ (07:53)
[2017-10-21] MEDS: INSULIN ASPART [NOVOLOG] 3 ML PEN SC ×7 (07:55→21:00)
[2017-10-21] MEDS ORDERED: NEOMYC/POLYMYX/BACIT 30 GM OINT (08:35)
[2017-10-21] MEDS: ONDANSETRON 4 MG INJ IV (09:06)
[2017-10-21] MEDS: FENTAnyl 50 MCG/ML VIAL IV (09:06)
[2017-10-21] MEDS: TERBINAFINE 250 MG TAB PO ×2 (11:15→21:55)
[2017-10-21] MEDS: CEFTRIAXONE 1 GM/50 ML (PMX) 50 ML IVPB (11:16)
[2017-10-21] MEDS: morphine LIQ (10 MG/5 ML) CUP PO (14:51)
[2017-10-21] MEDS: HYDROmorphONE 0.5 MG/0.5 ML SYG IV ×2 (18:15→22:03)
[2017-10-21] MEDS: INSULIN GLARGINE [LANTus] (100 UNITS/ML) SYG SC (21:52)
[2017-10-22] MEDS: HYDROmorphONE 0.5 MG/0.5 ML SYG IV ×3 (04:21→22:12)
[2017-10-22 06:08] LABS: ADD MAN DIFF? NO
[2017-10-22 06:13] LABS: WHITE BLOOD COUNT 4.6 10^3/ul (4.8-10.8)
[2017-10-22 06:13] LABS: ABNORMAL IP MESSAGE 1; BASOPHILS % 0.4 % (0.0-2.0); EOSINOPHILS # 0.1 10^3/ul (0.0-0.5); EOSINOPHILS % 2.6 % (0.0-7.0); HEMOGLOBIN 8.9 g/dl (14.0-18.0); LYMPHOCYTES # 0.9 10^3/ul (0.8-2.9); LYMPHOCYTES % 19.1 % (15.0-51.0); MEAN CORPUSCULAR HEMOGLOBIN 29.1 pg (29.0-33.0); MEAN CORPUSCULAR HGB CONC 31.8 g/dl (32.0-37.0); MEAN CORPUSCULAR VOLUME 91.5 fl (82.0-101.0); MEAN PLATELET VOLUME 9.9 fl (7.4-10.4); MONOCYTE # 0.3 10^3/ul (0.3-0.9); MONOCYTES % 7.5 % (0.0-11.0); NEUTROPHIL # 3.2 10^3/ul (1.6-7.5); PLATELET COUNT 64 10^3/UL (140-415); POSITIVE DIFF @See below; RED BLOOD COUNT 3.06 10^6/ul (4.70-6.10); RED CELL DISTRIBUTION WIDTH 14.7 % (11.5-14.5)
[2017-10-22 06:49] LABS: ANION GAP 10 (8-16); BLOOD UREA NITROGEN 37 mg/dl (7-20); CALCIUM 7.9 mg/dl (8.4-10.2); CARBON DIOXIDE 24 mmol/L (21-31); CHLORIDE 106 mmol/L (97-110); CREATININE 1.63 mg/dl (0.61-1.24); GLUCOSE 116 mg/dl (70-220); MAGNESIUM 1.9 mg/dl (1.7-2.5); PHOSPHORUS 3.8 mg/dl (2.5-4.9); POTASSIUM 4.9 mmol/L (3.5-5.1); SODIUM 135 mmol/L (135-144)
[2017-10-22] MEDS: INSULIN ASPART [NOVOLOG] 3 ML PEN SC ×7 (07:55→21:00)
[2017-10-22] MEDS: TERBINAFINE 250 MG TAB PO (08:26)
[2017-10-22] MEDS: CEFTRIAXONE 1 GM/50 ML (PMX) 50 ML IVPB (11:56)
[2017-10-22] MEDS: INSULIN GLARGINE [LANTus] (100 UNITS/ML) SYG SC (22:07)
[2017-10-23] MEDS: ACCU-CHEK XX (01:57)
[2017-10-23] MEDS: INSULIN ASPART [NOVOLOG] 3 ML PEN SC ×7 (07:48→21:00)
[2017-10-23 08:16] LABS: ANION GAP 11 (8-16); BLOOD UREA NITROGEN 38 mg/dl (7-20); CALCIUM 8.3 mg/dl (8.4-10.2); CARBON DIOXIDE 23 mmol/L (21-31); CHLORIDE 109 mmol/L (97-110); CREATININE 1.64 mg/dl (0.61-1.24); GLUCOSE 95 mg/dl (70-220); MAGNESIUM 2.1 mg/dl (1.7-2.5); PHOSPHORUS 4.2 mg/dl (2.5-4.9); POTASSIUM 4.7 mmol/L (3.5-5.1); SODIUM 138 mmol/L (135-144)
[2017-10-23] MEDS: CEFTRIAXONE 1 GM/50 ML (PMX) 50 ML IVPB (11:45)
[2017-10-23] MEDS ORDERED: HYDROmorphONE 2 MG TAB PO (17:30)
[2017-10-23] MEDS: ACETAMINOPHEN 325 MG TAB PO (21:29)
[2017-10-23] MEDS: INSULIN GLARGINE [LANTus] (100 UNITS/ML) SYG SC (21:37)
[2017-10-24] MEDS: ACCU-CHEK XX (02:00)
[2017-10-24 07:15] LABS: ANION GAP 9 (8-16); BLOOD UREA NITROGEN 39 mg/dl (7-20); CALCIUM 8.5 mg/dl (8.4-10.2); CARBON DIOXIDE 24 mmol/L (21-31); CHLORIDE 110 mmol/L (97-110); CREATININE 1.56 mg/dl (0.61-1.24); GLUCOSE 108 mg/dl (70-220); MAGNESIUM 2.2 mg/dl (1.7-2.5); PHOSPHORUS 4.6 mg/dl (2.5-4.9); POTASSIUM 4.4 mmol/L (3.5-5.1)
[2017-10-24 07:50] LABS: SODIUM 139 mmol/L (135-144)
[2017-10-24] MEDS: INSULIN ASPART [NOVOLOG] 3 ML PEN SC ×6 (07:55→13:32)
[2017-10-24] MEDS: CEFTRIAXONE 1 GM/50 ML (PMX) 50 ML IVPB (11:54)
== END 2017-10-24 15:28 | disposition home health service (06) | DRG 617 ==
LOC: TEL 21:25 → E/R 15:13 → TEL 21:00
PROC: 0Y6Y0Z0 Detachment at Left 5th Toe, Complete, Open Approach (ICD-10-PCS; principal; 2017-10-18 07:23)
PROC: 0JBR0ZZ Excision of Left Foot Subcutaneous Tissue and Fascia, Open Approach (ICD-10-PCS; 2017-10-18 07:23)
PROC: 047S3ZZ Dilation of Left Posterior Tibial Artery, Percutaneous Approach (ICD-10-PCS; 2017-10-18 07:23)
PROC: 047W3ZZ Dilation of Left Foot Artery, Percutaneous Approach (ICD-10-PCS; 2017-10-18 07:23)
PROC: 0QBP0ZZ Excision of Left Metatarsal, Open Approach (ICD-10-PCS; 2017-10-18 07:23)
DX: E11.69 Type 2 diabetes mellitus with other specified complication (principal); M86.9 Osteomyelitis, unspecified; E87.1 Hypo-osmolality and hyponatremia; E87.2 Acidosis; D61.818 Other pancytopenia; L03.116 Cellulitis of left lower limb; L97.526 Non-pressure chronic ulcer of other part of left foot with bone involvement without evidence of necrosis; I12.9 Hypertensive chronic kidney disease with stage 1 through stage 4 chronic kidney disease, or unspecified chronic kidney disease; N17.9 Acute kidney failure, unspecified; E11.22 Type 2 diabetes mellitus with diabetic chronic kidney disease; N18.3 Chronic kidney disease, stage 3 (moderate); E11.65 Type 2 diabetes mellitus with hyperglycemia; E11.621 Type 2 diabetes mellitus with foot ulcer; K70.30 Alcoholic cirrhosis of liver without ascites; E11.51 Type 2 diabetes mellitus with diabetic peripheral angiopathy without gangrene; E11.42 Type 2 diabetes mellitus with diabetic polyneuropathy; I70.245 Atherosclerosis of native arteries of left leg with ulceration of other part of foot; I80.8 Phlebitis and thrombophlebitis of other sites; I82.612 Acute embolism and thrombosis of superficial veins of left upper extremity; D50.9 Iron deficiency anemia, unspecified; B35.1 Tinea unguium; F10.21 Alcohol dependence, in remission; E78.5 Hyperlipidemia, unspecified
CPT/HCPCS: 71045; 73630-LT; 75710; 76775; 76937; 78707; 80048; 80053; 80061; 81001; 81003; 82043; 82150; 82607; 82728; 82962; 83036; 83540; 83605; 83690; 83735; 84100; 84155; 84300; 84443; 84484; 85025; 85610; 85730; 86850; 86900; 86901; 87040; 87070; 87086; 88305; 88311; 93005; 93922; 93971; 96365; 96375; 99291-25